=== PATIENT | female | born 1945 | race Native Hawaiian/Other Pacific Islander ===

== ENCOUNTER 2019-04-17 08:39 | Outpatient (CLI) | payer OTHER, BC | END 2019-04-17 20:08 | disposition home or self-care (01) | LOC: RAD 08:39 | DX: Z13.820 Encounter for screening for osteoporosis (principal); N95.8 Other specified menopausal and perimenopausal disorders ==

== ENCOUNTER 2021-03-31 14:17 | Outpatient (CLI) | payer BC | END 2021-03-31 19:09 | disposition home or self-care (01) | LOC: LAB 14:17 | PROVIDERS: ATTEND Internal Medicine | DX: E03.8 Other specified hypothyroidism (principal) | CPT/HCPCS: 84439; 84443 ==